=== PATIENT | male | born 1975 | race Caucasian/White ===

== ENCOUNTER 2016-08-06 08:37 | Emergency (ER) | payer SELFPAY ==
[2016-08-06 09:15] VITALS: BP 129/85
--- NOTE | 2016-08-06 10:37 | UC ---
Lolly Lewis Claudia, scribed for [facility] on 08/06/16 at 1007 . Throat Pain/Nasal Mustapha HPI - HPI Summary HPI Summary: In Room Note: 41 year old male presents to the [facility] with sore throat. Pt notes sudden onset of pain yesterday. Pt denies NVD, abd pain. Pt also admits to sinus congestion and left ear pain and sore throat. Pt denies any aleviating factors but notes that swallowing aggregates his sore throat. Note: Temp 100.6, heavy everyday smoker. Nurse's Note: PT STATES SORE THROAT AND SWELLING ON RIGHT SIDE SINCE YESTERDAY. STATES "HURTS TO SWOLLOW", DIFFICULTY BREATHING AT TIMES. - History of Current Complaint Chief Complaint: UCGeneralIllness Stated Complaint: SORE THROAT Time Seen by Provider: 08/06/16 10:05 Hx Obtained From: Patient Onset/Duration: Sudden Onset - yesterday, Lasting Hours Associated Signs & Symptoms: Negative: Vomiting - Allergies/Home Medications Allergies/Adverse Reactions: Allergies Allergy/AdvReac Type Severity Reaction Status Date / Time Penicillins Allergy Unknown Unknown Verified 07/21/13 10:14 Reaction Details PMH/Surg Hx/FS Hx/Imm Hx Previously Healthy: Yes Endocrine History Of: Denies: Diabetes, Thyroid Disease Cardiovascular History Of: Denies: Cardiac Disorders, Hypertension Respiratory History Of: Denies: COPD, Asthma GI/ History Of: Denies: Ulcer - Surgical History Surgical History: Yes Surgery Procedure, Year, and Place: EYE SURGERY CHILDHOOD - Family History Known Family History: Positive: Hypertension Family History: [place] - Social History Occupation: Employed Full-time Lives: With Family Alcohol Use: Occasionally Substance Use Type: Marijuana Substance Use Comment - Amount & Last Used: 1-2 X DAILY Smoking Status (MU): Heavy Every Day Tobacco Smoker Type: Cigarettes Amount Used/How Often: 2 PACKS/DAY Cessation Counseling: Patient Advised to Stop Review of Systems Constitutional: Negative Skin: Negative Eyes: Negative ENT: Sore Throat, Ear Ache Respiratory: Negative Cardiovascular: Negative Gastrointestinal: Negative, Other - NO NVD ABD PAIN Genitourinary: Negative Motor: Negative Neurovascular: Negative Musculoskeletal: Negative Neurological: Negative Psychological: Negative All Other Systems Reviewed And Are Negative: Yes Physical Exam Triage Information Reviewed: Yes Vital Signs: Initial Vital Signs Temp 100.6 F 08/06/16 09:07 Pulse 85 08/06/16 09:07 Resp 16 08/06/16 09:07 BP 129/85 08/06/16 09:07 Pulse Ox 97 08/06/16 09:07 Vital Signs Reviewed: Yes - Additional Comments Appearance: well-appearing, no pain distress, well-nourished Eyes: Conjunctiva clear ENT: Hearing grossly normal, pharynx normal, TMs normal, (-) muffled/hoarse voice BOTH TONSILS ARE SWOLLEN AND ERYTHEMATOUS EXUDATE ON BOTH TONSILS. THEY ARE NOT TOUCHING THE UVULA. Neck: Supple, no lymphadenopathy Resp: Chest non-tender, lungs clear, normal breath sounds, no respiratory distress Cardio: RRR, No murmur Abd: nontender, no organomegaly, soft Bowel: Present Musc: Strength intact, HARTMAN Neuro: Alert Psych: Age appropriate behavior Skin: (-) rashes Throat Pain/Nasal Course/Dx - Course Assessment/Plan: I discussed the treatment plan with the pt and his . We discussed the need for antibiotics, anti-inflammatory and pain medication. He and his voiced understanding and agreement. Rapid strep was invalid x 2. Will treat as positive. Medications have been included in the original chart and reviewed. Patient is Urgent/Emergent. BP elevated due to current condition w /o HTN in PMH. 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: [id number] - Differential Dx/Diagnosis Differential Diagnosis/HQI/PQRI: Other - viral pharyngitis, bacterial pharyngitis Provider Diagnoses: tonsilitis Discharge - Discharge Plan Condition: Stable Disposition: HOME Prescriptions: Clindamycin Cap(NF) [Cleocin 300 mg Cap(NF)] 300 mg PO TID #30 cap MDD 3 Dexamethasone TAB* [Decadron TAB*] 4 mg PO DAILY #4 tab HYDROcodone/ACETAMIN 5-325 MG* [[place] 5-325 TAB*] 1 tab PO Q6H #10 tab MDD 4 Lidocaine 2% VISCOUS* [Xylocaine 2% Viscous*] 15 ml SWISH SPIT Q4H PRN #1 btl MDD 6 per day PRN Reason: Sore Throat Patient Education Materials: Tonsillitis (ED) Referrals: Shaheed Rosales MD [Primary Care Provider] - Additional Instructions: WE DISCUSSED: 1. You have an infection in your tonsils. 2. Begin antibiotic 3 times a day for 10 days. 3. Also: dexamethasone for inflammation and Vicodin for pain. 4. Recheck at any time; GO TO ED FOR INCREASED PROBLEMS SWALLOWING OR BREATHING. 5. ALSO: STAND UNDER SHOWER STREAM TO LOOSEN SECRETIONS. USE A VAPORIZOR. STAY AWAY FROM ANY SMOKE OR IRRITANTS. USE SALINE NASAL SPRAY TO KEEP FLOW OF MUCOUS FROM NOSTRILS AND SINUSES. DRINK LOTS OF WARM FLUIDS USEFUL HOME REMEDIES: WARM WATER GARGLES, WITH TSP OF SALT PER 8 OUNCES OF WATER, GARGLE FOR A FEW SECONDS AND SPIT OUT; GARGLE AND SPIT OUT; EVERY THREE HOURS. AND/OR: WARM WATER OR TEA, HONEY AND LEMON; 2-3 CUPS A DAY. FOR SORE THROAT: KEEP THROAT MOIST WITH LOZENGES; TEA AND HONEY. USE WARM WATER GARGLES 3-4 TIMES A DAY. The documentation as recorded by the Lolly dimas Claudia accurately reflects the service I personally performed and the decisions made by , Orestes Koehler MD.
== END 2016-08-06 10:49 | disposition home or self-care (01) ==
LOC: UCEAST 08:37
DX: J03.90 Acute tonsillitis, unspecified (principal); F17.210 Nicotine dependence, cigarettes, uncomplicated; Z88.0 Allergy status to penicillin
CPT/HCPCS: 99212; G0463

== ENCOUNTER 2016-10-08 11:37 | Emergency (ER) | payer OTHER ==
[2016-10-08] MEDS ORDERED: Aspirin Low Dose CHEW TAB* 81 MG PO ONE (12:34)
[2016-10-08 13:22] LABS: Albumin 4.2 g/dL (3.2-5.2); BUN/Creatinine Ratio 13.4 (8-20); Calcium 9.4 mg/dL (8.6-10.3); EGFR Non-African American 131.4 (>60); Globulin 2.4 g/dL (2-4); Magnesium 2.1 mg/dL (1.9-2.7); Potassium 3.8 mmol/L (3.5-5.0); Total Bilirubin 0.6 mg/dL (0.2-1.0); Total Protein 6.6 g/dL (6.4-8.9)
[2016-10-08 13:25] LABS: Troponin I 0.01 ng/mL (<0.04)
--- NOTE | 2016-10-08 13:40 | RAD ---
Indication: Chest pain yesterday and tingling this a.m. LEFT back pain. Weakness. Comparison: July 21, 2013 Technique: Upright AP 1330 hours Report: Lung volumes appear elevated suggesting potential obstructive lung disease. No pulmonary infiltrate, focal pulmonary lesion, pleural effusion, pneumothorax. The heart, pulmonary vasculature, and mediastinal contours are unremarkable. Unremarkable osseous structures. IMPRESSION: 1. Elevated lung volumes suggest potential obstructive lung disease. 2. No evidence for acute intrathoracic disease.
[2016-10-08 13:46] LABS: T4 7.5 mcg/mL (6.09-12.23)
[2016-10-08 13:47] LABS: TSH (Thyroid Stimulating Horm) 0.62 mcIU/mL (0.34-5.60)
[2016-10-08 14:10] LABS: Hematocrit 45 % (42-52); Hemoglobin 14.9 g/dl (14.0-18.0); Mean Corpuscular HGB Conc 33 g/dl (31-36); Mean Corpuscular Hemoglobin 30 pg (27-31); Mean Corpuscular Volume 91 fL (80-94); Mean Platelet Volume 8 um3 (7.4-10.4); Red Blood Count 4.93 10^6/ul (4.0-5.4); Red Cell Distribution Width 14 % (10.5-15); White Blood Count 11.2 10^3/ul (3.5-10.8)
[2016-10-08 14:20] VITALS: BP 132/94
--- NOTE | 2016-10-09 18:01 | ED ---
Misty Lewis Edward, scribed for Omar Keller MD on 10/08/16 at 1332 . HPI Chest Pain - HPI Summary HPI Summary: 41 y/o male presents to ED c/o acute on chronic CP. Patient had one episode of CP yesterday morning while working that lasted 20 minutes and one episode this morning in bed that lasted one minute. The CP was in the patient's left side with numbness radiating down his left arm. Assoc sx: SOB, fatigue, nausea, numbness down his left arm, pain in his back and ribs, and chills. Denies vomiting. Patient smokes 2 packs a day and uses EtOH daily. Patient also uses marijuana and last used cocaine 3 months ago. FHx - [place], HTN. - History of Current Complaint Chief Complaint: EDChestPainROMI Time Seen by Provider: 10/08/16 12:33 Hx Obtained From: Patient Onset/Duration: Started Hours Ago, Resolved Timing: Lasting Minutes - One quick minute this morning. 20 minutes yesterday morning Initial Severity: Moderate Current Severity: None Pain Intensity: 0 Chest Pain Radiates: Yes Chest Pain Radiates To:: Arm - Numbness down arm Associated Signs and Symptoms: Positive: Shortness of Breath, Chills, Nausea, Other: - Pain in back, ribs. Negative: Vomiting - Allergy/Home Medications Allergies/Adverse Reactions: Allergies Allergy/AdvReac Type Severity Reaction Status Date / Time Penicillins Allergy Unknown Unknown Verified 07/21/13 10:14 Reaction Details PMH/Surg Hx/FS Hx/Imm Hx Previously Healthy: No Endocrine/Hematology History: Denies: Hx Diabetes, Hx Thyroid Disease Cardiovascular History: Reports: Other Cardiovascular Problems/Disorders - Chronic chest pain Denies: Hx Hypertension Respiratory History: Denies: Hx Asthma, Hx Chronic Obstructive Pulmonary Disease (COPD) GI History: Denies: Hx Ulcer - Surgical History Surgery Procedure, Year, and Place: EYE SURGERY [facility]ILDHOOD Infectious Disease History: No Infectious Disease History: Denies: Hx Clostridium Difficile, Hx Hepatitis, Hx Human Immunodeficiency Virus (HIV), Hx of Known/Suspected MRSA, Hx Shingles, Hx Tuberculosis, Hx Known/ Suspected VRE, Hx Known/Suspected VRSA, History Other Infectious Disease, Traveled Outside the [place] in Last 30 Days - Family History Known Family History: Positive: Cardiac Disease - Father had an [place] (unknown age) , Hypertension - Mom Family History: [place] - Social History Alcohol Use: Occasionally Substance Use Type: Reports: Marijuana Substance Use Comment - Amount & Last Used: 1-2 X DAILY Hx Tobacco Use: Yes Smoking Status (MU): Heavy Every Day Tobacco Smoker Type: Cigarettes Amount Used/How Often: 2 PACKS/DAY Review of Systems Positive: Chills, Fatigue Eyes: Negative ENT: Negative Positive: Chest Pain Positive: Shortness Of Breath Positive: Nausea. Negative: Vomiting Genitourinary: Negative Positive: Other - Back and rib pain. Skin: Negative Positive: Numbness - L arm went numb this morning Psychological: Normal All Other Systems Reviewed And Are Negative: Yes Physical Exam - Summary Physical Exam Summary: VITAL SIGNS:~Reviewed. GENERAL:~ Patient is a well-developed and nourished male who is lying comfortable in the stretcher.~ Patient is not in any acute respiratory distress. HEAD AND FACE:~No signs of trauma.~ No ecchymosis, hematomas or skull depressions. No sinus tenderness. EYES:~PERRLA, EOMI x 2, No injected conjunctiva, no nystagmus. EARS:~Hearing grossly intact. Ear canals and tympanic membranes are within normal limits. MOUTH:~Oropharynx within normal limits. Smells of tobacco in mouth. NECK:~Supple, trachea is midline, no adenopathy, no JVD, no carotid bruit, no c- spine tenderness, neck with full ROM. CHEST:~Symmetric, reproduce CP in left side of chest. LUNGS:~Clear to auscultation bilaterally. No wheezing or crackles. CVS:~Regular rate and rhythm, S1 and S2 present, no murmurs or gallops appreciated. ABDOMEN:~Soft, non-tender. No signs of distention. No rebound no guarding, and no masses palpated. Bowel sounds are normal. EXTREMITIES:~FROM in all major joints, no edema, no cyanosis or clubbing. NEURO:~Alert and oriented x 3. No acute neurological deficits. Speech is normal and follows commands. SKIN:~Dry and warm Triage Information Reviewed: Yes Vital Signs On Initial Exam: Initial Vitals Temp Pulse Resp BP Pulse Ox 97.6 F 58 20 134/94 100 10/08/16 11:50 10/08/16 11:50 10/08/16 11:50 10/08/16 11:50 10/08/16 11:50 Vital Signs Reviewed: Yes Diagnostics - Vital Signs Vital Signs Temp Pulse Resp BP Pulse Ox 10/08/16 11:52 97.6 F 62 20 134/94 100 10/08/16 11:50 97.6 F 58 20 134/94 100 - Laboratory Lab Results: Lab Results 10/08/16 10/08/16 Range/Units 12:45 12:45 Sodium 135 (133-145) mmol/L Potassium 3.8 (3.5-5.0) mmol/L Chloride 106 (101-111) mmol/L Carbon Dioxide 23 (22-32) mmol/L Anion Gap 6 (2-11) mmol/L BUN 9 (6-24) mg/dL Creatinine 0.67 (0.67-1.17) mg/dL Est GFR ( Amer) 169.0 (>60) Est GFR (Non-Af Amer) 131.4 (>60) BUN/Creatinine Ratio 13.4 (8-20) Glucose 92 (70-100) mg/dL Lactic Acid 1.1 (0.5-2.0) mmol/L Calcium 9.4 (8.6-10.3) mg/dL Magnesium 2.1 (1.9-2.7) mg/dL Total Bilirubin 0.60 (0.2-1.0) mg/dL AST 21 (13-39) U/L ALT 19 (7-52) U/L Alkaline Phosphatase 60 (34-104) U/L Total Creatine Kinase 97 (10-223) U/L CK-MB (CK-2) Pending Troponin I Pending Total Protein 6.6 (6.4-8.9) g/dL Albumin 4.2 (3.2-5.2) g/dL Globulin 2.4 (2-4) g/dL Albumin/Globulin Ratio 1.8 (1-3) TSH Pending Thyroxine (T4) Pending Result Diagrams: 10/08/16 12:45 10/08/16 12:45 Lab Statement: Any lab studies that have been ordered have been reviewed, and results considered in the medical decision making process. - Radiology CXR Radiology Interpretation Completed By: Radiologist - 1. Elevated lung volumes suggest potential obstructive lung disease. 2. No evidence for acute intrathoracic disease. - EKG 1 EKG Interpretation: 11:59 - NSR @ 60 bpm, no ST elevations. Chest Pain Course/Dx - Course Assessment/Plan: 41 y/o male presents to ED c/o acute on chronic CP. Patient had one episode of CP yesterday morning while working that lasted 20 minutes and one episode this morning in bed that lasted one minute. The CP was in the patient's left side with numbness radiating down his left arm. Assoc sx: SOB, fatigue, nausea, numbness down his left arm, pain in his back and ribs, and chills. Denies vomiting. Patient smokes 2 packs a day and uses EtOH daily. Patient also uses marijuana and last used cocaine 3 months ago. FHx - [place], HTN. Test results WNL. At this point, he is comfortable in the stretcher. Requested discharge home. Explained to him that we dont have all of the tests back. However, he insisted he wants to go home. Pt signed out AMA. Discussed the risks of signing out AMA, but the patient continued to pursue signing out AMA. I extensively discussed with the patient the benefits and risk of leaving AMA. I also discussed the alternatives to leaving AMA, however, the patient still insist to leave the hospital AMA.. The primary nurse and the charge nurse also strongly recommended that the patient should not leave AMA. Patient understands the risk of leaving AMA, which includes but is not restricted to . Patient is Alert and oriented times three and patient verbalizes understanding. Patient has full capacity and is cognitively intact. Patient signed the AMA form. Patient was also advised to return to ED if he changes his mind or if the symptoms worsen or other symptoms appear. Patient understands and agrees. - Chest Pain Differential Diagnosis/HQI/PQRI: ACS, Angina, CHF, Chest Wall, GI Disease, Lower Respiratory Infection - Diagnoses Provider Diagnoses: Chest pain, AMA Discharge - Discharge Plan Condition: Fair Disposition: AGAINST MEDICAL ADVICE Referrals: Shaheed Rosales MD [Primary Care Provider] - The documentation as recorded by the Misty dimas Edward accurately reflects the service I personally performed and the decisions made by me, Omar Keller MD.
== END 2016-10-08 14:20 | disposition left against medical advice (07) ==
LOC: ED 11:37
DX: R07.9 Chest pain, unspecified (principal); R11.0 Nausea; R06.02 Shortness of breath; Z53.21 Procedure and treatment not carried out due to patient leaving prior to being seen by health care provider; F17.210 Nicotine dependence, cigarettes, uncomplicated
CPT/HCPCS: 36415; 71010; 80053; 82550; 82553; 83605; 83735; 83880; 84436; 84443; 84484; 85025; 93005; 99283; A9270-GY

== ENCOUNTER → 2018-03-29 11:52 | Emergency (ER) | payer MEDICAID, OTHER ==
[~2018-03-29 11:52] MED LIST: Omeprazole CAP* 20 MG PO ONE; Pantoprazole TAB (NF) 40 MG TAB PO ONE
[2018-03-29 15:25] LABS: ABS Basophils 0.1 10^3/ul (0-0.2); ABS Eosinophils 0.2 10^3/ul (0-0.6); ABS Lymphocytes 3.5 10^3/ul (1.0-4.8); ABS Monocytes 0.8 10^3/ul (0-0.8); ABS Nucleated RBC 0 10^3/ul; Eosinophil % 2.4 %; Hematocrit 45 % (42-52); Hemoglobin 15.4 g/dl (14.0-18.0); Lymphocyte % 36.7 %; Mean Corpuscular HGB Conc 34 g/dl (31-36); Mean Corpuscular Hemoglobin 32 pg (27-31); Mean Corpuscular Volume 93 fL (80-94); Mean Platelet Volume 7.8 fL (7.4-10.4); Nucleated Red Blood Cells % 0; Platelet Count 444 10^3/ul (150-450); Red Blood Count 4.82 10^6/ul (4.00-5.40); Red Cell Distribution Width 14 % (10.5-15); White Blood Count 9.6 10^3/ul (3.5-10.8)
[2018-03-29 15:49] LABS: EGFR Non-African American 137.8 (>60)
--- NOTE | 2018-03-29 16:22 | ED ---
Abdominal Pain/Male - HPI Summary HPI Summary: This pt is a 42 y/o male presenting to [facility] c/o epigastric abd pain for a couple of months now. He states he has had this pain every day in the morning for the past couple of months. Pt reports his epigastric abd pain radiates up to his chest and it is described as burning. Denies acid reflux or sour taste in mouth. Denies fever, chills, SOB, vomiting, diarrhea, urinary symptoms. He notes he has been taking "a lot" of aspirin for his pain. PMHx: glaucoma. Pt admits to tobacco use (1 ppd), occasional alcohol, and marijuana use (to help with glaucoma). - History of Current Complaint Chief Complaint: EDAbdPain Stated Complaint: ABD PAIN/VOMITING Time Seen by Provider: 03/29/18 16:10 Hx Obtained From: Patient Onset/Duration: Lasting Weeks, Still Present Timing: Lasting Weeks Severity Currently: Moderate Pain Intensity: 5 Pain Scale Used: 0-10 Numeric Location: Epigastric Radiates: Yes Radiates to: Chest Character: Burning Aggravating Factor(s): Nothing Alleviating Factor(s): Nothing Associated Signs And Symptoms: Positive: Chest Pain, Nausea. Negative: Fever, Cough, Urinary Symptoms, Vomiting, Diarrhea - Allergies/Home Medications Allergies/Adverse Reactions: Allergies Allergy/AdvReac Type Severity Reaction Status Date / Time MS Penicillins [Penicillins] Allergy Unknown Unknown Verified 03/29/18 16:48 Reaction Details PMH/Surg Hx/FS Hx/Imm Hx Endocrine/Hematology History: Denies: Hx Diabetes, Hx Thyroid Disease Cardiovascular History: Reports: Other Cardiovascular Problems/Disorders - Chronic chest pain Denies: Hx Hypertension Respiratory History: Denies: Hx Asthma, Hx Chronic Obstructive Pulmonary Disease (COPD) GI History: Denies: Hx Ulcer Opthamlomology History: Reports: Hx Glaucoma - Surgical History Surgery Procedure, Year, and Place: EYE SURGERY CHILDHOOD Infectious Disease History: No Infectious Disease History: Denies: Hx Clostridium Difficile, Hx Hepatitis, Hx Human Immunodeficiency Virus (HIV), Hx of Known/Suspected MRSA, Hx Shingles, Hx Tuberculosis, Hx Known/ Suspected VRE, Hx Known/Suspected VRSA, History Other Infectious Disease, Traveled Outside the [place] in Last 30 Days - Family History Known Family History: Positive: Cardiac Disease - Father had an [place] (unknown age) , Hypertension - Mom Family History: [place] - Social History Alcohol Use: Occasionally Alcohol Amount: 12beers / day Substance Use Type: Reports: Marijuana Substance Use Comment - Amount & Last Used: 1-2 X DAILY Hx Tobacco Use: Yes Smoking Status (MU): Heavy Every Day Tobacco Smoker Type: Cigarettes Amount Used/How Often: 2 PACKS/DAY Review of Systems Negative: Fever, Chills Negative: Other - sour taste in mouth Positive: Chest Pain Negative: Shortness Of Breath Positive: Abdominal Pain, Nausea. Negative: Vomiting, Diarrhea Genitourinary: Negative Neurological: Negative All Other Systems Reviewed And Are Negative: Yes Physical Exam - Summary Physical Exam Summary: VITAL SIGNS: Reviewed. GENERAL: Patient is a well-developed and nourished male who is lying comfortable in the stretcher. Patient is not in any acute respiratory distress. HEAD AND FACE: Normocephalic and atraumatic. EYES: PERRLA, EOMI x 2, No injected conjunctiva. EARS: Hearing grossly intact. Ear canals and tympanic membranes are WNL. MOUTH: Oropharynx within normal limits. NECK: Supple, trachea is midline, no adenopathy, no JVD. CHEST: Symmetric, no tenderness at palpation LUNGS: Clear to auscultation bilaterally. No wheezing or crackles. CVS: RRR, S1 and S2 present, no murmurs or gallops appreciated. ABDOMEN: Soft. Slight epigastric tenderness. No signs of distention. Positive bowel sounds. No rebound no guarding, and no masses palpated. No abdominal bruit or pulsations. EXTREMITIES: FROM in all major joints, no edema, no cyanosis or clubbing. NEURO: Alert and oriented x 3. No acute neurological deficits. Speech is normal. SKIN: Dry and warm Triage Information Reviewed: Yes Vital Signs On Initial Exam: Initial Vitals Temp Pulse Resp BP Pulse Ox 97.6 F 66 16 139/99 100 03/29/18 12:01 03/29/18 12:01 03/29/18 12:03/29/18 12:03/29/18 12:01 Vital Signs Reviewed: Yes Diagnostics - Vital Signs Vital Signs Temp Pulse Resp BP Pulse Ox 03/29/18 14:34 97.9 F 68 16 139/90 98 03/29/18 12:01 97.6 F 66 16 139/99 100 - Laboratory Lab Results: Lab Results 03/29/18 03/29/18 Range/Units 15:04 15:04 WBC 9.6 (3.5-10.8) 10^3/ul RBC 4.82 (4.00-5.40) 10^6/ul Hgb 15.4 (14.0-18.0) g/dl Hct 45 (42-52) % MCV 93 (80-94) fL MCH 32 H (27-31) pg MCHC 34 (31-36) g/dl RDW 14 (10.5-15) % Plt Count 444 (150-450) 10^3/ul MPV 7.8 (7.4-10.4) fL Neut % (Auto) 52.0 % Lymph % (Auto) 36.7 % Grimes % (Auto) 7.9 % Eos % (Auto) 2.4 % Baso % (Auto) 1.0 % Absolute Neuts (auto) 5.0 (1.5-7.7) 10^3/ul Absolute Lymphs (auto) 3.5 (1.0-4.8) 10^3/ul Absolute Monos (auto) 0.8 (0-0.8) 10^3/ul Absolute Eos (auto) 0.2 (0-0.6) 10^3/ul Absolute Basos (auto) 0.1 (0-0.2) 10^3/ul Absolute Nucleated RBC 0 10^3/ul Nucleated RBC % 0 Sodium 139 (135-145) mmol/L Potassium 4.5 (3.5-5.0) mmol/L Chloride 105 (101-111) mmol/L Carbon Dioxide 27 (22-32) mmol/L Anion Gap 7 (2-11) mmol/L BUN 19 (6-24) mg/dL Creatinine 0.64 L (0.67-1.17) mg/dL Est GFR ( Amer) 166.8 (>60) Est GFR (Non-Af Amer) 137.8 (>60) BUN/Creatinine Ratio 29.7 H (8-20) Glucose 99 (70-100) mg/dL Calcium 9.5 (8.6-10.3) mg/dL Total Bilirubin 0.40 (0.2-1.0) mg/dL AST 13 (13-39) U/L ALT 13 (7-52) U/L Alkaline Phosphatase 73 (34-104) U/L Total Protein 7.3 (6.4-8.9) g/dL Albumin 4.6 (3.2-5.2) g/dL Globulin 2.7 (2-4) g/dL Albumin/Globulin Ratio 1.7 (1-3) Lipase 31 (11.0-82.0) U/L Result Diagrams: 03/29/18 15:04 03/29/18 15:04 Lab Statement: Any lab studies that have been ordered have been reviewed, and results considered in the medical decision making process. - EKG 16:44 Cardiac Rate: NL - at 63 bpm EKG Rhythm: Sinus Rhythm Summary of EKG Findings: No ST elevations. Re-Evaluation - Re-Evaluation First Eval Re-Evaluation Time: 17:14 Change: Improved Comment: He reports feeling better. I reviewed the lab results with pt. He will be discharged home with follow up from his PCP. Abdominal Pain Fem Course/Dx - Course Assessment/Plan: This pt is a 42 y/o male presenting to [facility] c/o epigastric abd pain for a couple of months now. He states he has had this pain every day in the morning for the past couple of months. Pt reports his epigastric abd pain radiates up to his chest and it is described as burning. Denies acid reflux or sour taste in mouth. Denies fever, chills, SOB, vomiting, diarrhea, urinary symptoms. He notes he has been taking "a lot" of aspirin for his pain. PMHx: glaucoma. Pt admits to tobacco use (1 ppd), occasional alcohol, and marijuana use (to help with glaucoma). Blood work without any significant abnormality. I believe the patient is having some reflux and gastritis since the patient is taking too much aspirin. He reports that he takes aspirins because he has been having epigastric pain. Therefore the patient was given Protonix by mouth, he was asked not to take any more of oral aspirin at this point. If he has pain he should take Tylenol. EKG shows a normal sinus rhythm with no ST elevations, troponin is negative therefore I do not believe that the patient has any type of acute coronary syndrome. At this point the patient is completely asymptomatic he reports no pain. Therefore the patient will be discharged home with follow-up from his primary care physician. The patient was given a prescription for Prilosec. I discussed all the findings and test results with the patient. Patient was instructed to return to the emergency room immediately if any of the symptoms return or worsens. Plan of care was discussed with the patient and understands and agrees. All questions were answered at patient satisfaction. There were no further complaints or concerns. Lung exam before discharge: CTA B/L. Good air exchange. No wheezing or crackles heard. CVS: S1 and S2 present. No murmurs appreciated. Patient is alert and oriented x 3. Patient is hemodynamically stable. Patient will be discharged home with follow up from PCP in the next 2-3 days. - Diagnoses Provider Diagnoses: Epigastric pain, Gastritis Discharge - Sign-Out/Discharge Documenting (check all that apply): Patient Departure - discharge home - Discharge Plan Condition: Stable Disposition: HOME Prescriptions: Omeprazole CAP* [Prilosec CAP* 20 MG] 20 mg PO BID #20 cap. Patient Education Materials: Epigastric Pain (ED) Referrals: Shaheed Rosales MD [Primary Care Provider] - Additional Instructions: FOLLOW UP WITH YOUR PRIMARY CARE PROVIDER WITHIN ONE WEEK FOR HIGH BLOOD PRESSURE NOTED TODAY. RETURN TO THE ED FOR ANY NEW OR WORSENING SYMPTOMS. - Billing Disposition and Condition Condition: STABLE Disposition: Home - Attestation Statements Document Initiated by Bonita: Yes Documenting Rosyibjunior: Nata Wallace Provider For Whom Bonita is Documenting (Include Credential): Omar Keller MD Scribe Attestation: Nata Lewis, scribed for Omar Keller MD on 03/29/18 at 1838. Scribe Documentation Reviewed: Yes Provider Attestation: The documentation as recorded by the Nata dimas accurately reflects the service I personally performed and the decisions made by me, Omar Keller MD Status of Scribe Document: Viewed
[2018-03-29 17:23] VITALS: BP 128/78
== END | disposition home or self-care (01) ==
LOC: ED 11:52
DX: R10.13 Epigastric pain (principal); K29.70 Gastritis, unspecified, without bleeding; R07.9 Chest pain, unspecified; R11.0 Nausea; Z88.0 Allergy status to penicillin; F17.210 Nicotine dependence, cigarettes, uncomplicated
CPT/HCPCS: 36415; 80053; 83690; 84484; 85025; 93005; 99281; A9270-GY

== ENCOUNTER 2018-04-28 11:23 | Day surgery (SDC) | payer MEDICAID, OTHER ==
[~2018-04-28 11:23] MED LIST changes: +Lactated Ringers 1000 ML Bag* 1,000 ML IV SCH; -Omeprazole CAP* 20 MG PO ONE; -Pantoprazole TAB (NF) 40 MG TAB PO ONE
[2018-04-28] MEDS: Buffered Lidocaine 0.9% SYRIN* 5 ML/SYR SYRINGE INTRADERM ONE ×2 (12:03→14:52)
[2018-04-28] MEDS ORDERED: DiMENhydriNATE IV* 50 MG/ML VIAL IV PUSH PRN (12:58)
[2018-04-28] MEDS ORDERED: Naloxone* 0.4 MG/ML 1 ML VIAL IV PRN ×2 (12:58→14:21)
[2018-04-28] MEDS ORDERED: Midazolam* 1 MG/ML 5 ML VIAL (5 MG) ONE ×2 (13:47)
[2018-04-28] MEDS ORDERED: Propofol* 10 MG/ML 20 ML BTL ONE ×2 (14:07)
[2018-04-28] MEDS ORDERED: Ondansetron INJ* 2 MG/ML VIAL IV PRN (14:21)
[2018-04-28 15:21] VITALS: BP 92/72
--- NOTE | 2018-04-28 23:31 | PRO ---
CC: Dr. Shaheed Rosales * EGD REPORT: DATE OF PROCEDURE: 04/28/18 - [facility] PRIMARY CARE PHYSICIAN: Dr. Shaheed Rosales. INDICATION FOR PROCEDURE: Hematemesis. PROCEDURE: Complete esophagogastroduodenoscopy with biopsies. MEDICATIONS GIVEN: Please see Anesthesia record via anesthesia service. DESCRIPTION OF PROCEDURE: After the EGD procedure including the risks, benefits , and alternatives with the risks not limited to perforation, surgery, missed lesions, and/or were explained to the patient, written informed consent was obtained. IV medication was given. A bite-block was placed between the teeth. The adult Olympus gastroscope was inserted into the patient's oropharynx , into the tubular esophagus. There was a 1 cm possible tongue of Miller's mucosa at the GE junction at 40 cm. This was biopsied to rule out Milelr's. There was no evidence of Nury-Sorto tear or other esophageal lesions. The scope was advanced through the lower esophageal sphincter into the stomach. On retroflexion, a small 2 cm hiatal hernia was visualized. There were associated French erosions that were small and non-bleeding. On advancement to the antrum of the stomach, mild gastritis was appreciated. This was biopsied for CLOtesting. No ulcerations or erosions were appreciated in this portion of the stomach. The scope was then advanced through the widely patent pylorus into the duodenal bulb, C-loop, and distal duodenum. These were normal in appearance. The scope was then removed from the patient. He tolerated the procedure well. He returned to the recovery room in stable condition. IMPRESSION: 1. Complete esophagogastroduodenoscopy with biopsies. 2. Hiatal hernia, 2 cm, small. 3. French erosions, small, nonbleeding. 4. 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 RECOMMENDATIONS: At this point, we would recommend the patient continue to take his proton pump inhibitor. I suspect that his brief episode of hematemesis may have been related to a French erosion opening up from his emesis. I reviewed his gallbladder ultrasound, it is without etiology. At this point, I suspect some of his nausea and emesis may be from polysubstance abuse and also alcohol abuse along with his marijuana abuse. We recommend abstinence of these items and continued reassessment. If ongoing, consider gastric emptying study. We will have the patient follow up with me in 3 months ' time after he has been on a proton pump inhibitor for 3 months and reevaluate his symptomatology. [id number]/[facility] #: [id number] MTDD
== END 2018-04-28 16:32 | disposition home or self-care (01) ==
LOC: OR 11:23
PROVIDERS: ATTEND Internal Medicine Gastroenterology
DX: K92.0 Hematemesis (principal); K44.9 Diaphragmatic hernia without obstruction or gangrene; R10.13 Epigastric pain; Z88.0 Allergy status to penicillin; F17.210 Nicotine dependence, cigarettes, uncomplicated; R11.0 Nausea; F12.10 Cannabis abuse, uncomplicated; Z71.41 Alcohol abuse counseling and surveillance of alcoholic
CPT/HCPCS: 87077; 88305; J2250; J2704

== ENCOUNTER 2018-11-28 10:26 | Emergency (ER) | payer OTHER ==
[2018-11-28] MEDS ORDERED: NS 0.9% 1000 ML** 1,000 ML IV ONE (11:19)
--- NOTE | 2018-11-28 11:34 | ED ---
Complex/Multi-Sys Presentation - HPI Summary HPI Summary: This patient is a 43 year old M presenting to [facility] accompanied by with a chief complaint of worsening lower back pain and neck pain over the past two weeks. Pt works in construction, and frequently lifts heavy items. Pt has been nauseous and vomiting in the mornings for about 1 year, is on medication for nausea. Recent neg head CT. Follows w GI. Patient reporting shooting pain down bilateral legs, tingling in R leg (chronic), and CHOUDHURY (constant, beginning 3 days ago). Headache is located in his posterior occiput, came on gradually. No fevers or chills. No bowel or bladder incontinence, no weakness LE. Patient denies any recent incidents of illness within his household. Symptoms aggravated by walking and moving. Has been working more than normal in construction over the past two weeks. No CP or SOB. Mild cough. Per triage, the patient rates the pain 10/10 in severity. 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 - History Of Current Complaint Chief Complaint: EDGeneral Time Seen by Provider: 11/28/18 11:09 Hx Obtained From: Patient Onset/Duration: Gradual Onset, Lasting Weeks, Still Present Timing: Constant, Weeks Severity Currently: Severe Severity Initially: Moderate Location: Pain At: - neck, and lower back Aggravating Factor(s): walking Associated Signs And Symptoms: Positive: Headache, Nausea, Vomiting, Back Pain, Other - shooting pain down bilateral legs, tingling in legs and armspos - neck pain and swelling,. Negative: Fever - Allergies/Home Medications Allergies/Adverse Reactions: Allergies Allergy/AdvReac Type Severity Reaction Status Date / Time Penicillins Allergy Unknown Unknown Verified 11/28/18 10:41 Reaction Details Home Medications: Home Medications Baclofen TAB* [Lioresal TAB*] 20 mg PO QID PRN 11/28/18 [History Confirmed 09/11] Brimonidine P 0.15%(NF) [Alphagan P 0.15%(NF)] 1 drop BOTH EYES DAILY 11/28/18 [ History Confirmed 11/28/18] Hydrocodone/Acetaminophen [Hydrocodone-Acetamin 5-325 mg] 1 tab PO TID 11/28/18 [History Confirmed 11/28/18] Omeprazole CAP (NF) [Prilosec CAP* 20 MG] 40 mg PO BID 11/28/18 [History Confirmed 11/28/18] PMH/Surg Hx/FS Hx/Imm Hx Endocrine/Hematology History: Denies: Hx Diabetes, Hx Thyroid Disease Cardiovascular History: Reports: Other Cardiovascular Problems/Disorders - Chronic chest pain Denies: Hx Hypertension Respiratory History: Denies: Hx Asthma, Hx Chronic Obstructive Pulmonary Disease (COPD) GI History: Reports: Hx Gastroesophageal Reflux Disease Denies: Hx Ulcer History: Denies: Hx Renal Disease Musculoskeletal History: Reports: Other Musculoskeletal History - SCIATICA IN BACK Sensory History: Reports: Hx Contacts or Glasses - GLASSES, Hx Glaucoma Denies: Hx Hearing Aid Opthamlomology History: Reports: Hx Contacts or Glasses - GLASSES, Hx Glaucoma Neurological History: Reports: Hx Headaches - RELATED TO EYE PRESSURE, Other Neuro Impairments/Disorders - SCIATICIA LOWER BACK AND NECK - Surgical History Surgery Procedure, Year, and Place: EYE SURGERY CHILDHOOD. EYE SURGERY LAST YEAR [facility] Hx Anesthesia Reactions: No Infectious Disease History: No Infectious Disease History: Denies: Hx Clostridium Difficile, Hx Hepatitis, Hx Human Immunodeficiency Virus (HIV), Hx of Known/Suspected MRSA, Hx Shingles, Hx Tuberculosis, Hx Known/ Suspected VRE, Hx Known/Suspected VRSA, History Other Infectious Disease, Traveled Outside the [place] in Last 30 Days - Family History Known Family History: Positive: Cardiac Disease - Father had an TN (unknown age) , Hypertension - Mom Family History: [place] - Social History Occupation: Employed Full-time Lives: With Family Alcohol Use: Daily Alcohol Amount: 1 beer/day lately, "usually a case a day" Hx Substance Use: Yes Substance Use Type: Reports: Marijuana Substance Use Comment - Amount & Last Used: "a joint a day" Hx Tobacco Use: Yes Smoking Status (MU): Heavy Every Day Tobacco Smoker Type: Cigarettes Amount Used/How Often: 2 PACKS/DAY Have You Smoked in the Last Year: No Review of Systems Negative: Fever Positive: Vomiting, Nausea Positive: Other - pos - back pain, neck pain, swollen neck, shooting pain down bilateral legs, tingling in legs and arms Neurological: Other - pos -tingling in legs Positive: Headache All Other Systems Reviewed And Are Negative: Yes Physical Exam - Summary Physical Exam Summary: Constitutional: Appears older than stated age, NAD Skin: Warm, Dry HENT: Normocephalic; Atraumatic Eyes: Conjunctiva normal Neck: Musculoskeletal ROM normal neck. (-) JVD, (-) Stridor, (-) Nuchal rigidity Cardio: Rhythm regular, rate normal, Heart sounds normal; Intact distal pulses; Radial pulses are 2+ and symmetric. (-) Murmur Pulmonary/Chest wall: Effort normal. (-) Respiratory distress, (-) Wheezes, (-) Rales Abd: Soft, (-) tenderness, (-) Distension, (-) Guarding, (-) Rebound Musculoskeletal: (-) Edema, Midline and paraspinal and cervical tenderness, midline paraspinal lumbar tenderness, positive straight leg raise bilaterally Lymph: (-) Cervical adenopathy Neuro: Alert, Oriented x3, SILT UE and LE aside from intermittent parasthesias to R lateral calf (chronic). Strength 5/5 BUE BLE Psych: Mood and affect Normal Triage Information Reviewed: Yes Vital Signs On Initial Exam: Initial Vitals Temp Pulse Resp BP Pulse Ox 98.7 F 72 16 134/93 100 11/28/18 10:28 11/28/18 10:28 11/28/18 10:28 11/28/18 10:28 11/28/18 10:28 Vital Signs Reviewed: Yes Diagnostics - Vital Signs Vital Signs Temp Pulse Resp BP Pulse Ox 11/28/18 10:28 98.7 F 72 16 134/93 100 - Laboratory Result Diagrams: 11/28/18 11:28 11/28/18 11:28 Lab Statement: Any lab studies that have been ordered have been reviewed, and results considered in the medical decision making process. - Radiology CXR Radiology Interpretation Completed By: Radiologist Summary of Radiographic Findings: CXR reveals, per radiologist, IMPRESSION: NO EVIDENCE FOR ACTIVE CARDIOPULMONARY DISEASE. ED physician has reviewed this radiology report. - CT Cervical Spine CT CT Interpretation Completed By: Radiologist Summary of CT Findings: Cervical Spine CT reveals, per radiologist, IMPRESSION: 1. No fracture or traumatic malalignment of the cervical spine. 2. Mild multilevel spondylosis does not result in significant osseous encroachment spinal canal or neural foramina. ED physician has reviewed this radiology report. Lumbar Spine CT CT Interpretation Completed By: Radiologist Summary of CT Findings: Lumbar Spine CT reveals, per radiologist, IMPRESSION: Degenerative disc disease at L5-S1 without fracture. ED physician has reviewed this radiology report. - EKG 11:25 Cardiac Rate: NL EKG Rhythm: Sinus Rhythm Summary of EKG Findings: An EKG at 11:25 reveals normal sinus rhythm 67 bpm, nml axis, nml intervals. No STEMI. No acute changes. Re-Evaluation - Re-Evaluation First Eval Re-Evaluation Time: 12:37 Change: Improved Comment: Pt is feeling better d/w patient that everything here is reassuring. Do not suspect meningitis, no fever and well appearing on exam. Likely MSK in nature. Feeling improved. TSH to be redrawn but patient does not want to stay for lab. Complex Multi-Symp Course/Dx Course Of Treatment: 43 y/o male w hx hernia, degenerative disc disease of the lumbar spine, heavy tobacco use, who presents with multiple complaints. Regarding headache, patient is 3 days of an occipital tension like headache. This is a patient who presents with headache. History of headaches of similar type. This is not the worst headache patient has had, and no additional features today to suggest need for further workup on a truly emergent basis ( imaging, LP, etc). Fatigue: well appearing, afebrile here. No weight gain or weight loss. Well check TSH, and CBC. Will also check a CPK. Also reporting midline and paraspinal C-spine tenderness: No direct trauma to that, however patient lifts heavy objects construction, check a CT C-spine. Regarding back pain - he reports a history of sciatica, is on muscle relaxers and wears an occasional brace. No new symptoms today including no bowel or bladder incontinence, no trauma to suggest fracture, no known history of IV drug use or fevers to suggest infectious cause. Check a plain film, give pain control. Patient reports cough, heavy tobacco use, check a chest x-ray to rule out pneumonia or malignancy. Patient reports chronic nausea, had negative head CT for mass lesion, and has had an EGD as well as a known hiatal hernia. No new symptoms regarding nausea or abdominal pain. - Diagnoses Provider Diagnoses: Back pain, Neck pain, Fatigue Discharge - Sign-Out/Discharge Documenting (check all that apply): Patient Departure - Discharge Patient Received Moderate/Deep Sedation with Procedure: No - Discharge Plan Condition: Stable Disposition: HOME Prescriptions: Cyclobenzaprine TAB* [Flexeril 10 MG TAB*] 10 mg PO TID PRN 4 Days #12 tab PRN Reason: Pain - Moderate Patient Education Materials: Fatigue (ED), Back Pain (ED), Neck Pain (ED) Referrals: Shaheed Rosales MD [Primary Care Provider] - 3 Days Additional Instructions: You were seen in the emergency department for neck pain, back pain, and feeling fatigued. Your cervical spine CT did not show any fractures, your x-ray of your L spine did not show any new changes. He should follow up with orthopedic doctor regarding her chronic back pain If you continue to have neck pain, headaches, and developed fever, confusion, or do not improve, please seek medical care or return to the emergency department. Your TSH lab is pending If any studies were not completed at the time of discharge you will be called with the relevant results. Please follow up with your primary care doctor in next 2-3 days and return to emergency department for worsening or concerning symptoms. - Billing Disposition and Condition Condition: STABLE Disposition: Home - Attestation Statements Document Initiated by Bonita: Yes Documenting Scribe: Shahnaz Gallegos Provider For Whom Bonita is Documenting (Include Credential): Dr. Remigio Song MD Scribe Attestation: Shahnaz Lewis scribed for Dr. Remigio Song MD on 11/28/18 at 1707. Scribe Documentation Reviewed: Yes Provider Attestation: The documentation as recorded by the Shahnaz dimas accurately reflects the service I personally performed and the decisions made by , Dr. Remigio Song MD Status of Scribe Document: Viewed
[2018-11-28 11:36] LABS: ABS Basophils 0.1 10^3/ul (0-0.2); ABS Eosinophils 0.1 10^3/ul (0-0.6); ABS Lymphocytes 2.1 10^3/ul (1.0-4.8); ABS Monocytes 0.6 10^3/ul (0-0.8); ABS Neutrophils 8.8 10^3/ul (1.5-7.7); Eosinophil % 0.8 %; Hematocrit 44 % (42-52); Lymphocyte % 18.2 %; Mean Corpuscular HGB Conc 34 g/dL (31-36); Mean Corpuscular Hemoglobin 31 pg (27-31); Mean Corpuscular Volume 92 fL (80-94); Mean Platelet Volume 7.7 fL (7.4-10.4); Platelet Count 375 10^3/uL (150-450); Red Blood Count 4.78 10^6 /uL (4.18-5.48); Red Cell Distribution Width 14 % (10-15); White Blood Count 11.7 10^3/uL (3.5-10.8)
[2018-11-28 11:48] LABS: INR 0.96 (0.82-1.09)
[2018-11-28 11:57] LABS: Albumin 4.4 g/dL (3.2-5.2); Albumin/Globulin Ratio 1.5 (1-3); BUN/Creatinine Ratio 16.4 (8-20); Calcium 9.3 mg/dL (8.6-10.3); EGFR African American 142.6 (>60); EGFR Non-African American 117.8 (>60); Potassium 4.2 mmol/L (3.5-5.0); Total Bilirubin 0.4 mg/dL (0.2-1.0); Total Protein 7.4 g/dL (6.4-8.9)
[2018-11-28] MEDS ORDERED: Ketorolac INJ* 30 MG/ML 1 ML VIAL IV ONE (11:57)
[2018-11-28] MEDS ORDERED: Cyclobenzaprine TAB* 10 MG PO ONE (12:28)
[2018-11-28 14:33] VITALS: BP 133/93
== END 2018-11-28 14:32 | disposition home or self-care (01) ==
LOC: ED 10:26
DX: M54.40 Lumbago with sciatica, unspecified side (principal); M54.2 Cervicalgia; R53.83 Other fatigue; F17.210 Nicotine dependence, cigarettes, uncomplicated; Z88.0 Allergy status to penicillin; K21.9 Gastro-esophageal reflux disease without esophagitis; M51.37 Other intervertebral disc degeneration, lumbosacral region; R51 Headache; R11.0 Nausea; R07.9 Chest pain, unspecified; Z82.49 Family history of ischemic heart disease and other diseases of the circulatory system; G89.29 Other chronic pain
CPT/HCPCS: 36415; 71046; 72100; 72125; 80053; 82550; 84443; 84484; 85025; 85610; 93005; 96360; 96361; 96374; 99283; A9270-GY; J1885

== ENCOUNTER 2019-04-02 13:11 | Emergency (ER) | payer OTHER ==
--- NOTE | 2019-04-02 14:03 | ED ---
HPI Chest Pain - HPI Summary HPI Summary: The pt is a 43 yr old male presenting to [facility] c/o chest pain radiating to the left arm beginning 2 hours ago. He was sitting and having coffee when the pain began and he also reports some numbness/tingling in his legs. He describes the chest pain as stabbing and located in the left side of his chest. He rates his current pain severity due to the chest pain a 6/10. No aggravating factors noted. He notes that aspirin has improved the chest pain a bit. He also reports feeling fatigued but denies any nausea or vomiting. He is a current everyday smoker. - History of Current Complaint Chief Complaint: EDChestPainROMI Time Seen by Provider: 04/02/19 13:27 Hx Obtained From: Patient Onset/Duration: Started Hours Ago, Still Present Timing: Constant, Lasting Hours Initial Severity: Moderate Current Severity: Moderate Pain Intensity: 6 Pain Scale Used: 0-10 Numeric Chest Pain Radiates: Yes Chest Pain Radiates To:: Arm - left Aggravating Factor(s): Nothing Alleviating Factor(s): Medication - aspirin Associated Signs and Symptoms: Positive: Chest Pain, Shortness of Breath, Other : - pos - fatigue. Negative: Nausea, Vomiting - Allergy/Home Medications Allergies/Adverse Reactions: Allergies Allergy/AdvReac Type Severity Reaction Status Date / Time Penicillins Allergy Unknown Unknown Verified 04/02/19 13:24 Reaction Details National Institutes Of Health - NIH Scale Level of Consciousness: Alert/Keenly Responsive Ask Patient the Month and His/Her Age: Both Correct Ask Pt to Open/Close Eyes and Field Laborer/Release Non-Paretic Hand: Both Correctly Best Gaze (Only Horizontal Eye Movement): Normal Visual Field Testing: No Visual Loss Facial Paresis-Pt to Smile & Close Eyes or Grimace Symmetry: Normal/Symmetrical Motor Function - Right Arm: No Drift-Holds 10 Seconds Motor Function - Left Arm: No Drift-Holds 10 Seconds Motor Function - Right Leg: No Drift-Holds 10 Seconds Motor Function - Left Leg: No Drift-Holds 10 Seconds Limb Ataxia-Must be out of Proportion to Weakness Present: Absent Sensory (Use Pinprick to Test Arms/Legs/Trunk/Face): Normal Best Language (Describe Picture, Name Items): No Aphasia Dysarthria (Read Several Words): Normal Extinction and Inattention: No Abnormality Total Score: 0 PMH/Surg Hx/FS Hx/Imm Hx Endocrine/Hematology History: Denies: Hx Diabetes, Hx Thyroid Disease Cardiovascular History: Reports: Other Cardiovascular Problems/Disorders - Chronic chest pain Denies: Hx Hypertension Respiratory History: Denies: Hx Asthma, Hx Chronic Obstructive Pulmonary Disease (COPD) GI History: Reports: Hx Gastroesophageal Reflux Disease Denies: Hx Ulcer History: Denies: Hx Renal Disease Musculoskeletal History: Reports: Other Musculoskeletal History - SCIATICA IN BACK Sensory History: Reports: Hx Contacts or Glasses - GLASSES, Hx Glaucoma Denies: Hx Hearing Aid Opthamlomology History: Reports: Hx Contacts or Glasses - GLASSES, Hx Glaucoma Neurological History: Reports: Hx Headaches - RELATED TO EYE PRESSURE, Other Neuro Impairments/Disorders - SCIATICIA LOWER BACK AND NECK - Surgical History Surgery Procedure, Year, and Place: EYE SURGERY CHILDHOOD. EYE SURGERY LAST YEAR [facility] Hx Anesthesia Reactions: No Infectious Disease History: No Infectious Disease History: Denies: Hx Clostridium Difficile, Hx Hepatitis, Hx Human Immunodeficiency Virus (HIV), Hx of Known/Suspected MRSA, Hx Shingles, Hx Tuberculosis, Hx Known/ Suspected VRE, Hx Known/Suspected VRSA, History Other Infectious Disease, Traveled Outside the [place] in Last 30 Days - Family History Known Family History: Positive: Cardiac Disease - Father had an DE (unknown age) , Hypertension - Mom Family History: [place] - Social History Alcohol Use: None Alcohol Amount: states no longer drinks Hx Substance Use: Yes Substance Use Type: Reports: Marijuana Substance Use Comment - Amount & Last Used: "a joint a day" Hx Tobacco Use: Yes Smoking Status (MU): Heavy Every Day Tobacco Smoker Type: Cigarettes Amount Used/How Often: 2 PACKS/DAY Have You Smoked in the Last Year: No Review of Systems Positive: Fatigue Positive: Chest Pain Positive: Shortness Of Breath Negative: Vomiting, Nausea All Other Systems Reviewed And Are Negative: Yes Physical Exam - Summary Physical Exam Summary: VITAL SIGNS: Reviewed. GENERAL: Patient is a disheveled thin male that appears older than his age, unkempt, unhygienic, without acute stress HEAD AND FACE: No signs of trauma. No ecchymosis, hematomas or skull depressions. No sinus tenderness. EYES: PERRLA, EOMI x 2, No injected conjunctiva, no nystagmus. EARS: Hearing grossly intact. Ear canals and tympanic membranes are within normal limits. MOUTH: Oropharynx within normal limits. NECK: Supple, trachea is midline, no adenopathy, no JVD, no carotid bruit, no c- spine tenderness, neck with full ROM. CHEST: Symmetric, no tenderness at palpation. LUNGS: Clear to auscultation bilaterally. No wheezing or crackles. CVS: Regular rate and rhythm, S1 and S2 present, no murmurs or gallops appreciated. ABDOMEN: Soft, non-tender. No signs of distention. No rebound, no guarding, and no masses palpated. Bowel sounds are normal. EXTREMITIES: FROM in all major joints, no edema, no cyanosis or clubbing. NEURO: Alert and oriented x 3. No acute neurological deficits. Speech is normal and follows commands. GCS of 15. NIH of 0. SKIN: Dry and warm. Triage Information Reviewed: Yes Vital Signs On Initial Exam: Initial Vitals Pulse Resp BP Pulse Ox 63 18 139/93 98 04/02/19 13:11 04/02/19 13:11 04/02/19 13:11 04/02/19 13:11 Vital Signs Reviewed: Yes - Jose Coma Scale Best Eye Response: 4 - Spontaneous Best Motor Response: 6 - Obeys Commands Best Verbal Response: 5 - Oriented Coma Scale Total: 15 Procedures - Sedation Patient Received Moderate/Deep Sedation with Procedure: No Diagnostics - Vital Signs Vital Signs Temp Pulse Resp BP Pulse Ox 04/02/19 13:28 62 16 98 04/02/19 13:17 98.5 F 64 16 139/93 97 04/02/19 13:11 63 18 139/93 98 - Laboratory Result Diagrams: 04/02/19 14:10 04/02/19 14:10 Lab Statement: Any lab studies that have been ordered have been reviewed, and results considered in the medical decision making process. - EKG 1344 Cardiac Rate: NL EKG Rhythm: Sinus Rhythm - 61 bpm Summary of EKG Findings: An EKG done at 1344 reveals NSR @ 61 bpm. Re-Evaluation - Re-Evaluation First Eval Re-Evaluation Time: 16:44 Comment: The pt wants to be discharge AMA. Chest Pain Course/Dx - Course Assessment/Plan: The pt is a 43 yr old male presenting to [facility] c/o chest pain radiating to the left arm beginning 2 hours ago. He was sitting and having coffee when the pain began and he also reports some numbness/tingling in his legs. He describes the chest pain as stabbing and located in the left side of his chest. He rates his current pain severity due to the chest pain a 6/10. No aggravating factors noted. He notes that aspirin has improved the chest pain a bit. He also reports feeling fatigued but denies any nausea or vomiting. He is a current everyday smoker. Blood work without any significant abnormality except for PTT of 39.9, creatinine 0.63, AST of 9 and CPK-MB of 0.4. Chest x- ray impression: No acute cardiopulmonary process. EKG shows a normal sinus rhythm without any ST elevations. Head CT was ordered since patient reports tingling of lower extremities. Patient declines to stay for the test results. He will sign AMA. I extensively discussed with the patient the benefits and risk of leaving AMA. I also discussed the alternatives to leaving AMA, however, the patient still insist to leave the hospital AMA. The patient is clinically sober, free from distracting injury, appears to have intact insight and judgment and reason and in my opinion has the capacity to make decisions. Patient has full capacity and is cognitively intact. The patient presents with chest pain and tingling in the lower extrmities, I have explained that I am concerned with those symptoms and may represent ACS, CVA. The patient verbalizes understanding of my concerns. I have also explained the results of the labs and even though they are normal. The primary nurse and the charge nurse also strongly recommended that the patient should not leave AMA. Patient understands the risk of leaving AMA, which includes but is not restricted to . Patient signed the AMA form. Patient was also advised to return to ED if he changes his mind or if the symptoms worsen or other symptoms appear. Patient understands and agrees. Again, I discussed all the findings and test results with the patient. Patient was instructed to return to the emergency room immediately if any of the symptoms return or worsens. Plan of care was discussed with the patient and understands and agrees. All questions were answered at patient satisfaction. There were no further complaints or concerns. Patient signed AMA and he was discharged AMA. - Chest Pain Differential Diagnosis/HQI/PQRI: Acute DE, ACS, Angina, CHF, Chest Wall, GI Disease, Lower Respiratory Infection - Diagnoses Provider Diagnoses: Chest pain, Paresthesias Discharge ED - Sign-Out/Discharge Documenting (check all that apply): Patient Departure - discharge - Discharge Plan Condition: Stable Disposition: AGAINST MEDICAL ADVICE Referrals: Shaheed Rosales MD [Primary Care Provider] - 3 Days - Billing Disposition and Condition Condition: STABLE Disposition: Against Medical Advice - Attestation Statements Document Initiated by Scribe: Yes Documenting Scribe: Justo Villarreal Provider For Whom Scribe is Documenting (Include Credential): Omar Keller MD Scribe Attestation: Justo Lewis, scribed for Omar Keller MD on 04/03/19 at 1600. Scribe Documentation Reviewed: Yes Provider Attestation: The documentation as recorded by the Justo dimas accurately reflects the service I personally performed and the decisions made by Omar alexander MD Status of Scribe Document: Viewed
[2019-04-02 14:17] LABS: ABS Basophils 0.1 10^3/ul (0-0.2); ABS Eosinophils 0.2 10^3/ul (0-0.6); ABS Lymphocytes 3.5 10^3/ul (1.0-4.8); ABS Monocytes 0.7 10^3/ul (0-0.8); ABS Neutrophils 4.6 10^3/ul (1.5-7.7); Eosinophil % 1.8 %; Hematocrit 46 % (42-52); Lymphocyte % 38.4 %; Mean Corpuscular HGB Conc 35 g/dL (31-36); Mean Corpuscular Hemoglobin 33 pg (27-31); Mean Corpuscular Volume 92 fL (80-94); Mean Platelet Volume 8.1 fL (7.4-10.4); Nucleated Red Blood Cells % 0.1; Platelet Count 346 10^3/uL (150-450); Red Blood Count 4.94 10^6 /uL (4.18-5.48); Red Cell Distribution Width 14 % (10-15)
[2019-04-02 14:26] LABS: Activated Partial Thrombo Time 39.9 seconds (26.0-38.0); INR 0.98 (0.82-1.09)
[2019-04-02 14:34] LABS: Albumin 4.6 g/dL (3.2-5.2); Albumin/Globulin Ratio 2.3 (1-3); BUN/Creatinine Ratio 17.5 (8-20); Calcium 9.7 mg/dL (8.6-10.3); EGFR Non-African American 139.7 (>60); Magnesium 2.1 mg/dL (1.9-2.7); Potassium 3.9 mmol/L (3.5-5.0); Total Bilirubin 0.4 mg/dL (0.2-1.0); Total Protein 6.6 g/dL (6.4-8.9)
[2019-04-02 14:39] LABS: CKMB ng/mL 0.4 ng/mL (0.6-6.3)
[2019-04-02] MEDS ORDERED: Ketorolac INJ* 30 MG/ML 1 ML VIAL IV PUSH ONE (15:02)
[2019-04-02 15:05] LABS: TSH (Thyroid Stimulating Horm) 0.59 mcIU/mL (0.34-5.60)
[2019-04-02] MEDS ORDERED: diPHENhydraMINE IV* 50 MG/ML 1 ml VIAL (BENADRYL) IV ONE (16:02)
[2019-04-02] MEDS ORDERED: Metoclopramide IV* 5 MG/ML 2 ML VIAL IV SLOW PU ONE (16:02)
[2019-04-02 16:49] VITALS: BP 137/100
== END 2019-04-02 16:55 | disposition left against medical advice (07) ==
LOC: ED 13:11
DX: R07.89 Other chest pain (principal); R20.2 Paresthesia of skin; R06.02 Shortness of breath; R53.83 Other fatigue; R51 Headache; Z88.0 Allergy status to penicillin; Z82.49 Family history of ischemic heart disease and other diseases of the circulatory system; F17.210 Nicotine dependence, cigarettes, uncomplicated
CPT/HCPCS: 36415; 70450; 71045; 80053; 82550; 82553; 83605; 83735; 83880; 84443; 84484; 85025; 85610; 85730; 93005; 96374; 99283; J1885